=== PATIENT | male | born 1950 | race Caucasian/White ===

== ENCOUNTER → 2016-07-12 | Outpatient (CLI) | payer OTHER | LOC: RAD 13:22 | DX: N20.0 Calculus of kidney (principal) | CPT/HCPCS: 74000 ==

== ENCOUNTER 2016-08-04 04:14 | Emergency (ER) | payer OTHER ==
[2016-08-04 07:23] LABS: HEMOGLOBIN 10.2 gm/dl (14.0-17.5); RED BLOOD COUNT 5.43 M/UL (4.20-5.50); WHITE BLOOD COUNT 15.6 K/UL (4.5-11.0)
== END 2016-08-04 08:27 | disposition home or self-care (01) ==
LOC: ER1 04:14
PROVIDERS: Physician Assistant
DX: N13.2 Hydronephrosis with renal and ureteral calculous obstruction (principal); D72.829 Elevated white blood cell count, unspecified; K76.9 Liver disease, unspecified; N28.9 Disorder of kidney and ureter, unspecified; I10 Essential (primary) hypertension; Z88.0 Allergy status to penicillin
CPT/HCPCS: 36415; 80053; 81001; 83690; 85025; 96360; 99285

== ENCOUNTER → 2017-01-07 | Outpatient (CLI) | payer OTHER | LOC: KOH-I 11:03 | DX: N20.0 Calculus of kidney (principal) | CPT/HCPCS: 74000 ==

== ENCOUNTER 2020-07-16 18:20 | Emergency (ER) | payer OTHER ==
[~2020-07-16 18:20] MED LIST: AMLODIPINE BESYL5 MG PO; ASPIRIN EC325 MG PO; CRESTOR 10 MG T10 MG PO; EFFEXOR XR75 MG PO; FEOSOL325 MG PO; FERROUS SULFAT325 M2 PO; FISH OIL 1,0001 EACH PO; FLOMAX0.4 MG PO; HYDROCODON-ACE1 EAC4 PO; IMDUR ER TAB 3030 MG PO; IMDUR ER TAB 6060 MG PO; K-DUR TAB 20 M20 MEQ PO; LABETALOL HCL100 MG PO; LABETALOL HCL200 MG PO; LISINOPRIL10 MG PO; LOPRESSOR 25 MG25 MG PO; METOPROLOL SUCC25 MG PO; MOBIC7.5 MG PO; NORVASC 5 MG TAB5 MG PO; PRINIVIL10 MG PO; SINGULAIR10 MG PO; TESTOSTERO200 MG/1 M IM; THERAGRAN M TAB1 EA PO; VITAMIN C 500500 MG PO; ZESTRIL 40 MG T40 MG PO
[2020-07-16 19:25] LABS: RED BLOOD COUNT 4.8 M/UL (4.20-5.50); WHITE BLOOD COUNT 7.3 K/UL (4.5-11.0)
== END 2020-07-16 23:06 | disposition home or self-care (01) ==
LOC: ER1 18:20
PROVIDERS: Nurse Practitioner
DX: R07.9 Chest pain, unspecified (principal); I48.91 Unspecified atrial fibrillation; I25.2 Old myocardial infarction; E78.5 Hyperlipidemia, unspecified; I12.9 Hypertensive chronic kidney disease with stage 1 through stage 4 chronic kidney disease, or unspecified chronic kidney disease; E11.22 Type 2 diabetes mellitus with diabetic chronic kidney disease; N18.9 Chronic kidney disease, unspecified; Z79.82 Long term (current) use of aspirin; Z79.84 Long term (current) use of oral hypoglycemic drugs; Z79.899 Other long term (current) drug therapy; Z90.89 Acquired absence of other organs
CPT/HCPCS: 71045; 80053; 82550; 82553; 83735; 83874; 84484; 85025; 85610; 93005; 99285

== ENCOUNTER → 2020-08-27 | Outpatient (CLI) | payer OTHER ==
[~2020-08-27] MED LIST changes: +CENTRUM SILVER1 EAC1 PO; +CO Q-10100 MG PO; +COZAAR 50MG TAB50 MG PO; +GLUCOPHAGE 500500 MG PO; +LEVOFLOXACIN500 MG PO; +MELOXICAM7.5 MG PO; +SOTALOL80 MG PO; +VITAMIN B-1100 M1 PO
== END ==
LOC: HEART 5 15:18
DX: R00.2 Palpitations (principal); I47.1 Supraventricular tachycardia

== ENCOUNTER → 2020-10-28 | Outpatient (CLI) | payer OTHER ==
[2020-10-28 12:30] LABS: HEMOGLOBIN 12.3 gm/dl (14.0-17.5); RED BLOOD COUNT 4.13 M/UL (4.20-5.50); WHITE BLOOD COUNT 6.4 K/UL (4.5-11.0)
== END ==
LOC: LAB 10:43
PROVIDERS: Internal Medicine Cardiovascular Disease
DX: I10 Essential (primary) hypertension (principal); I44.7 Left bundle-branch block, unspecified; I45.5 Other specified heart block; R00.2 Palpitations
CPT/HCPCS: 36415; 71046; 80048; 85025

== ENCOUNTER 2020-11-07 09:27 | Outpatient (CLI) | payer OTHER ==
[~2020-11-07] VITALS: Ht 177.8 cm; Wt 93.0 kg
[~2020-11-07 09:27] MED LIST changes: -CENTRUM SILVER1 EAC1 PO; -CO Q-10100 MG PO; -COZAAR 50MG TAB50 MG PO; -GLUCOPHAGE 500500 MG PO; -LEVOFLOXACIN500 MG PO; -MELOXICAM7.5 MG PO; -SOTALOL80 MG PO; -VITAMIN B-1100 M1 PO
[2020-11-07] MEDS ORDERED: CENTRUM SILVER1 EAC1 PO (10:51)
[2020-11-07] MEDS ORDERED: AMLODIPINE BESYL5 MG PO (10:53)
[2020-11-07] MEDS ORDERED: GLUCOPHAGE 500500 MG PO (10:54)
[2020-11-07] MEDS ORDERED: MELOXICAM7.5 MG PO (10:54)
[2020-11-07] MEDS ORDERED: COZAAR 50MG TAB50 MG PO (10:55)
[2020-11-07] MEDS ORDERED: CO Q-10100 MG PO (10:58)
[2020-11-07] MEDS ORDERED: VITAMIN B-1100 M1 PO (11:00)
[2020-11-07] MEDS ORDERED: LEVOFLOXACIN500 MG PO (16:01)
[2020-11-07] MEDS ORDERED: HYDROCODON-ACE1 EAC4 PO (16:01)
[2020-11-08] MEDS ORDERED: SOTALOL80 MG PO (12:23)
== END 2020-11-08 12:47 | disposition home or self-care (01) ==
LOC: CATH 09:27 → PROG CARE 16:34 → CATH 11-08 12:47
DX: I47.2 Ventricular tachycardia (principal); I49.5 Sick sinus syndrome; I44.7 Left bundle-branch block, unspecified; I44.39 Other atrioventricular block; I25.10 Atherosclerotic heart disease of native coronary artery without angina pectoris; I12.9 Hypertensive chronic kidney disease with stage 1 through stage 4 chronic kidney disease, or unspecified chronic kidney disease; E11.22 Type 2 diabetes mellitus with diabetic chronic kidney disease; N18.9 Chronic kidney disease, unspecified; Z88.1 Allergy status to other antibiotic agents; Z79.82 Long term (current) use of aspirin; Z79.84 Long term (current) use of oral hypoglycemic drugs; Z79.899 Other long term (current) drug therapy
CPT/HCPCS: 33249; 71045; 82962; 93620; 93621; 93641; 99152; 99153; C1721; C1766; C1895; C1898; J1644; J2250; J2270; J3010; J3370; J7040; J7050; J7070

== ENCOUNTER → 2020-11-18 | Outpatient (CLI) | payer OTHER ==
[~2020-11-18] MED LIST changes: +CENTRUM SILVER1 EAC1 PO; +CO Q-10100 MG PO; +COZAAR 50MG TAB50 MG PO; +GLUCOPHAGE 500500 MG PO; +LEVOFLOXACIN500 MG PO; +MELOXICAM7.5 MG PO; +SOTALOL80 MG PO; +VITAMIN B-1100 M1 PO
[2020-11-19 09:13] LABS: TESTOSTERONE, SERUM <3 ng/dL (264-916)
== END ==
LOC: LAB 08:28
PROVIDERS: Physician Assistant
DX: E29.1 Testicular hypofunction (principal)
CPT/HCPCS: 36415; 84403

== ENCOUNTER → 2022-01-06 | Outpatient (CLI) | payer OTHER | LOC: EXRD 08:58 | DX: N18.9 Chronic kidney disease, unspecified (principal) | CPT/HCPCS: 76775 ==